=== PATIENT | female | born 1975 | race African-American/Black ===

== ENCOUNTER 2024-01-10 13:16 | Emergency (ER) | payer MEDICAID ==
[~2024-01-10] VITALS: Ht 154.9 cm; Wt 116.1 kg
[2024-01-10 13:28] VITALS: BP 132/72; PULSE 83; RESP 20; TEMP 98; O2SAT 99
[2024-01-10 14:21] LABS: BASOPHILS # (AUTO) 0.1 K/uL (0.00-0.22); BASOPHILS % (AUTO) 1.2 % (0.0-2.0); EOSINOPHILS # (AUTO) 0.1 K/uL (0-0.4); EOSINOPHILS % (AUTO) 0.9 % (0.0-4.0); HEMATOCRIT 32.4 % (36-48); HEMOGLOBIN 10.4 g/dL (12.0-16.0); LYMPHOCYTES # (AUTO) 2.2 K/uL (2.5-16.5); LYMPHOCYTES % (AUTO) 31.6 % (20.5-51.1); MEAN CORPUSCULAR HEMOGLOBIN 24 pg (27-31); MEAN CORPUSCULAR HGB CONC 32 g/dL (33-37); MEAN CORPUSCULAR VOLUME 74.8 fL (80-94); MONOCYTES # (AUTO) 0.4 K/uL (0.8-1.0); MONOCYTES % (AUTO) 6.3 % (1.7-9.3); NEUTROPHILS # (AUTO) 4.2 K/uL (1.8-7.7); PLATELET COUNT (AUTO) 288 K/uL (140-450); RED BLOOD CELL COUNT(AUTO) 4.33 MIL/uL (4.20-5.40); RED CELL DISTRIBUTION WIDTH 17.7 % (11.6-13.7)
[2024-01-10] MEDS: NACL 0.9% 1,000 ML IV ONE (14:35)
[2024-01-10] MEDS: MORPHINE SULFATE 4 MG/ML SYR IVP ONE (14:36)
[2024-01-10] MEDS: ONDANSETRON 4 MG/2 ML VIAL IVP ONE (14:37)
[2024-01-10 14:41] LABS: ANION GAP 12.3 (8-16); CALCIUM 8.6 mg/dL (8.5-10.1); CARBON DIOXIDE 28.6 mmol/L (21-32); CREATININE 0.9 mg/dL (0.6-1.3); POTASSIUM 3.9 mmol/L (3.5-5.1)
[2024-01-10 14:45] LABS: ALBUMIN 3.3 g/dL (3.4-5.0); BILIRUBIN,DIRECT 0.1 mg/dL (0.0-0.3); TOTAL BILIRUBIN 0.2 mg/dL (0.0-1.0)
[2024-01-10] MEDS: CIPROFLOXACIN 250 MG TAB PO ONE (17:12)
[2024-01-10] MEDS: metroNIDAZOLE 250 MG TAB PO ONE (17:13)
[2024-01-10] MEDS: HYDROcodone/APAP 10/325 MG 1 TAB TAB PO ONE (17:13)
[2024-01-10] MEDS ORDERED: CIPR500T4 PO (17:32)
[2024-01-10] MEDS ORDERED: HYDR-5191 PO (17:32)
[2024-01-10] MEDS ORDERED: METR-435 PO (17:32)
[2024-01-10 17:50] VITALS: BP 132/72; PULSE 83; RESP 20; TEMP 98; O2SAT 99
== END 2024-01-10 17:50 | disposition home or self-care (01) ==
LOC: MED 13:16
DX: K57.92 Diverticulitis of intestine, part unspecified, without perforation or abscess without bleeding (principal); J45.909 Unspecified asthma, uncomplicated; Z88.0 Allergy status to penicillin; Z91.040 Latex allergy status; Z79.899 Other long term (current) drug therapy
CPT/HCPCS: 36415; 74176; 80048; 80076; 83690; 84703; 85025; 96361; 96374; 96375; 99285; J2270; J2405; J7030

== ENCOUNTER 2024-03-10 15:53 | Emergency (ER) | payer MEDICAID ==
[~2024-03-10] VITALS: Ht 154.9 cm; Wt 116.1 kg
[~2024-03-10 15:53] MED LIST: CIPR500T4 PO; HYDR-5191 PO; METR-435 PO
[2024-03-10 16:02] VITALS: BP 135/93; PULSE 102; RESP 20; TEMP 97.8; O2SAT 98
[2024-03-10 17:50] VITALS: PULSE 92; RESP 16; O2SAT 100
[2024-03-10] MEDS: ALBUTEROL 0.083% 2.5 MG/3 ML NEBU INH ONE (17:50)
[2024-03-10] MEDS: ALBUTEROL SULFATE/IPRATROPIU 3 ML SOL IH ONE (17:50)
[2024-03-10 18:20] VITALS: TEMP 97.4
[2024-03-10] MEDS: predniSONE 20 MG TAB PO ONE (18:27)
[2024-03-10] MEDS ORDERED: PRED20TA5 PO (18:33)
[2024-03-10] MEDS ORDERED: ALBU0.0912 INH (18:33)
[2024-03-10] MEDS: KETOROLAC 60 MG/2 ML VIAL IM ONE (18:45)
[2024-03-10 19:54] VITALS: BP 134/84; PULSE 90; RESP 16
[2024-03-10 19:55] LABS: BASOPHILS # (AUTO) 0.1 K/uL (0.00-0.22); BASOPHILS % (AUTO) 1.2 % (0.0-2.0); EOSINOPHILS # (AUTO) 0.1 K/uL (0-0.4); EOSINOPHILS % (AUTO) 1.3 % (0.0-4.0); HEMATOCRIT 29.9 % (36-48); HEMOGLOBIN 9.6 g/dL (12.0-16.0); LYMPHOCYTES # (AUTO) 3.1 K/uL (2.5-16.5); LYMPHOCYTES % (AUTO) 47.2 % (20.5-51.1); MEAN CORPUSCULAR HEMOGLOBIN 24 pg (27-31); MEAN CORPUSCULAR HGB CONC 32 g/dL (33-37); MEAN CORPUSCULAR VOLUME 73.6 fL (80-94); MONOCYTES # (AUTO) 0.5 K/uL (0.8-1.0); MONOCYTES % (AUTO) 7.5 % (1.7-9.3); NEUTROPHILS # (AUTO) 2.8 K/uL (1.8-7.7); NEUTROPHILS % (AUTO) 42.8 % (42.2-75.2); PLATELET COUNT (AUTO) 285 K/uL (140-450); RED BLOOD CELL COUNT(AUTO) 4.07 MIL/uL (4.20-5.40); RED CELL DISTRIBUTION WIDTH 18.6 % (11.6-13.7); WHITE BLOOD COUNT (AUTO) 6.6 K/uL (4.8-10.8)
[2024-03-10 20:02] LABS: ANION GAP 11.8 (8-16); CALCIUM 8.7 mg/dL (8.5-10.1); CARBON DIOXIDE 27.5 mmol/L (21-32); CREATININE 1.1 mg/dL (0.6-1.3); POTASSIUM 3.3 mmol/L (3.5-5.1)
[2024-03-10 20:05] VITALS: O2SAT 100
[2024-03-10] MEDS: ONDANSETRON 4 MG ODT PO ONE (20:36)
== END 2024-03-10 21:03 | disposition home or self-care (01) ==
LOC: MED 15:53
DX: J45.901 Unspecified asthma with (acute) exacerbation (principal); R07.89 Other chest pain; R22.42 Localized swelling, mass and lump, left lower limb; K21.9 Gastro-esophageal reflux disease without esophagitis; I10 Essential (primary) hypertension; F17.200 Nicotine dependence, unspecified, uncomplicated; Z88.0 Allergy status to penicillin; Z79.899 Other long term (current) drug therapy
CPT/HCPCS: 36415; 80048; 81002; 83880; 84484; 85025; 93005; 93971; 94640; 96372; 99285; J1885; J7512; J7613; Q0092; Q0162

== ENCOUNTER 2024-06-15 14:58 | Emergency (ER) | payer MEDICAID ==
[~2024-06-15] VITALS: Ht 154.9 cm; Wt 122.0 kg
[~2024-06-15 14:58] MED LIST changes: +ALBU0.0912 INH; +HYDR-5071 PO; -HYDR-5191 PO; +PRED20TA5 PO
[2024-06-15 15:02] VITALS: BP 136/86; PULSE 82; RESP 16; TEMP 98; O2SAT 99
[2024-06-15] MEDS ORDERED: ACET-10509 PO (16:11)
[2024-06-15] MEDS: KETOROLAC 30 MG/ML VIAL IM ONE (16:14)
== END 2024-06-15 16:17 | disposition left against medical advice (07) ==
LOC: MED 14:58
DX: K08.89 Other specified disorders of teeth and supporting structures (principal); Z98.890 Other specified postprocedural states; J45.909 Unspecified asthma, uncomplicated; K21.9 Gastro-esophageal reflux disease without esophagitis; I10 Essential (primary) hypertension; Z79.899 Other long term (current) drug therapy; Z88.0 Allergy status to penicillin; Z88.8 Allergy status to other drugs, medicaments and biological substances
CPT/HCPCS: 81025; 99282; J1885

== ENCOUNTER 2024-09-10 18:50 | Emergency (ER) | payer MEDICAID ==
[~2024-09-10] VITALS: Ht 154.9 cm; Wt 127.9 kg
[~2024-09-10 18:50] MED LIST changes: +ACET500T99 PO
[2024-09-10 18:55] VITALS: BP 155/91; PULSE 89; RESP 20; TEMP 98.1; O2SAT 98
[2024-09-10 19:04] VITALS: BP 130/86; TEMP 98.8
[2024-09-10] MEDS: ALBUTEROL SULFATE/IPRATROPIU 3 ML SOL IH ONE (19:24)
[2024-09-10 19:25] VITALS: PULSE 78; RESP 14; O2SAT 98
[2024-09-10] MEDS: DICYCLOMINE 20 MG/2 ML VIAL IM ONE (19:32)
[2024-09-10 19:46] LABS: BASOPHILS # (AUTO) 0.1 K/uL (0.00-0.22); BASOPHILS % (AUTO) 1.5 % (0.0-2.0); EOSINOPHILS # (AUTO) 0.1 K/uL (0-0.4); EOSINOPHILS % (AUTO) 1.3 % (0.0-4.0); HEMATOCRIT 33.2 % (36-48); HEMOGLOBIN 10.6 g/dL (12.0-16.0); LYMPHOCYTES # (AUTO) 3.3 K/uL (2.5-16.5); LYMPHOCYTES % (AUTO) 46.3 % (20.5-51.1); MEAN CORPUSCULAR HEMOGLOBIN 23 pg (27-31); MEAN CORPUSCULAR HGB CONC 32 g/dL (33-37); MEAN CORPUSCULAR VOLUME 72.7 fL (80-94); MONOCYTES # (AUTO) 0.5 K/uL (0.8-1.0); MONOCYTES % (AUTO) 6.8 % (1.7-9.3); NEUTROPHILS # (AUTO) 3.1 K/uL (1.8-7.7); NEUTROPHILS % (AUTO) 44.1 % (42.2-75.2); PLATELET COUNT (AUTO) 241 K/uL (140-450); RED BLOOD CELL COUNT(AUTO) 4.57 MIL/uL (4.20-5.40); RED CELL DISTRIBUTION WIDTH 19.6 % (11.6-13.7); WHITE BLOOD COUNT (AUTO) 7.1 K/uL (4.8-10.8)
[2024-09-10 19:59] LABS: ALBUMIN 3.3 g/dL (3.4-5.0); BILIRUBIN,DIRECT 0.1 mg/dL (0.0-0.3); TOTAL BILIRUBIN 0.3 mg/dL (0.0-1.0); TOTAL PROTEIN, SERUM 7.4 g/dL (6.4-8.2)
[2024-09-10 20:07] LABS: ANION GAP 8.3 (8-16); CALCIUM 8.7 mg/dL (8.5-10.1); CARBON DIOXIDE 31.7 mmol/L (21-32); CREATININE 1.3 mg/dL (0.6-1.3)
[2024-09-10 21:35] LABS: APPEARANCE,URINE CLEAR (CLEAR); BILIRUBIN,URINE NEGATIVE (NEGATIVE); BLOOD, URINE NEGATIVE (NEGATIVE); COLOR,URINE YELLOW (YELLOW); LEUKOCYTE ESTERASE ,URINE NEGATIVE (NEGATIVE); NITRITE, URINE NEGATIVE (NEGATIVE); PROTEIN,URINE NEGATIVE (NEGATIVE); UGLUCOSE NEGATIVE (NEGATIVE)
[2024-09-10 21:56] VITALS: PULSE 86; O2SAT 99
== END 2024-09-10 21:52 | disposition home or self-care (01) ==
LOC: MED 18:50
DX: R10.32 Left lower quadrant pain (principal); R03.0 Elevated blood-pressure reading, without diagnosis of hypertension; J45.909 Unspecified asthma, uncomplicated; F17.210 Nicotine dependence, cigarettes, uncomplicated; Z71.6 Tobacco abuse counseling; Z79.899 Other long term (current) drug therapy; Z88.0 Allergy status to penicillin
CPT/HCPCS: 36415; 80048; 80076; 81003; 83690; 85025; 94640; 96372; 99283; J0500